=== PATIENT | female | born 1965 | race Caucasian/White ===

== ENCOUNTER → 2017-02-24 | Outpatient (CLI) | payer BC ==
--- NOTE | 2017-02-24 09:12 | DIAGNOSTIC IMAGING REPORT ---
R HAND MIN 3 VIEWS ROUTINE, R WRIST MIN 3 VIEWS ROUTINE CLINICAL HISTORY: RIGHT WRIST PAIN. Right hand pain. COMPARISON STUDY: None. FINDINGS: No fracture or dislocation. Minimal degenerative changes within the first carpometacarpal joint and DIP joints. Soft tissues are unremarkable. The scaphoid is intact. No radiopaque foreign bodies. IMPRESSION: No fracture or dislocation within the right hand or right wrist. Electronically signed by: Mark Pierre M.D. 02/24/2017 9:11 AM Dictated Date/Time: 02/24/2017 9:06 AM
== END | disposition home or self-care (01) ==
LOC: C.RAD1850 08:46
PROVIDERS: ATTEND Family Medicine
DX: M25.531 Pain in right wrist (principal)

== ENCOUNTER → 2017-09-16 | Outpatient (CLI) | payer OTHER ==
--- NOTE | 2017-09-17 14:20 | MAMMOGRAPHY REPORT ---
BILATERAL DIGITAL SCREENING MAMMOGRAM TOMOSYNTHESIS WITH CAD: 09/16/2017 CLINICAL HISTORY: Routine screening. Patient has no complaints. TECHNIQUE: Breast tomosynthesis in addition to standard 2D mammography was performed. Current study was also evaluated with a Computer Aided Detection (CAD) system. COMPARISON: Comparison is made to exams dated: 05/15/2015 stereotactic biopsy, 05/15/2015 mammogram, 05/06/2015 stereotactic biopsy, 03/27/2015 ultrasound, and 03/27/2015 mammogram - [facility]. BREAST COMPOSITION: The tissue of both breasts is extremely dense, which lowers the sensitivity of m ammography. FINDINGS: No suspicious masses, calcifications, or areas of architectural distortion are noted in ei ther breast. There has been no significant interval change compared to prior exams. A biopsy marker clip is again noted within the left superior breast from prior benign stereotactic biopsy. Small clu ster of calcifications seen within the left superior anterior breast is stable compared to the 2015 e xam and considered benign given long-term stability. A few benign-appearing partially circumscribed and partially obscured masses are again seen bilaterally and have fluctuated slightly compared to the prior exams; the findings likely represent cysts given that multiple cysts were seen on the prior ul trasound exam. IMPRESSION: ACR BI-RADS CATEGORY 2: BENIGN There is no mammographic evidence of malignancy. A 1 year screening mammogram is recommended. The pa tient will receive written notification of the results. Approximately 10% of breast cancers are not detected with mammography. A negative mammographic report should not delay biopsy if a clinically suggestive mass is present. Maritza Echevarria M.D. ah/:09/16/2017 15:34:12 Medical Center Manager: Meghan MORFIN(R)(M), [facility] letter sent: Normal 1/2 BI-RADS Code: ACR BI-RADS Category 2: Benign
== END | disposition home or self-care (01) ==
LOC: C.MAMM 13:23
PROVIDERS: ATTEND Family Medicine
DX: Z12.31 Encounter for screening mammogram for malignant neoplasm of breast (principal)